=== PATIENT | female | born 2000 | race Caucasian/White ===

== ENCOUNTER 2020-08-24 12:51 | Emergency (ER) | payer BC, SELFPAY ==
[2020-08-24 13:30] VITALS: BP 118/80; PULSE 70; RESP 16; TEMP 36.4; O2SAT 100
--- NOTE | 2020-08-24 14:50 | ED.GENADULT ---
HPI - General Adult General Chief complaint: Unspecified <Red Hudson PA-C - Last Filed: 08/24/20 14:54> Stated complaint: needs return to work slip <Red Hudson PA-C - Last Filed: 08/24/20 14:54> Time Seen by Provider: 08/24/20 14:46 <Red Hudson PA-C - Last Filed: 08/24/20 14:54> Source: patient <Red Hudson PA-C - Last Filed: 08/24/20 14:54> Mode of arrival: ambulatory <Red Hudson PA-C - Last Filed: 08/24/20 14:54> Limitations: no limitations <Red Hudson PA-C - Last Filed: 08/24/20 14:54> History of Present Illness HPI narrative: Patient a 19-year-old female who presents to emergency department for evaluation of emesis yesterday which began early in the day 4 episodes of emesis felt better in the evening notes that her symptoms have resolved has no pain nausea patient notes that she feels fine this morning is tolerating p.o. intake without difficulty Patient requesting a work release <Red Hudson PA-C - Last Filed: 08/24/20 14:54> Related Data Home medications: Home Medications Medication Instructions Recorded Confirmed No Home Medications 08/24/20 08/24/20 <Red Hudson PA-C - Last Filed: 08/24/20 14:54> Allergies/adverse reactions: Allergies Allergy/AdvReac Type Severity Reaction Status Date / Time No Known Allergies Allergy Mild Verified 08/24/20 13:34 <Red Hudson PA-C - Last Filed: 08/24/20 14:54> Review of Systems Review of Systems: All systems reviewed & are unremarkable except as noted in HPI and below <Red Hudson PA-C - Last Filed: 08/24/20 14:54> PMFSH Social History Social History: Social History Gender identity (if verbalized by the patient): Female <Red Hudson PA-C - Last Filed: 08/24/20 14:54> Exam Narrative: Exam Narrative: GENERAL: Well-appearing, well-nourished, and in no acute distress. HEAD: Normocephalic, atraumatic. EYES: PERRLA and EOMI. ENT: Nares clear, no rhinorrhea or epistaxis. Mucous membranes moist. CHEST: Clear to auscultation. No respiratory distress. No wheezes rales or rhonchi HEART: Regular rate and rhythm. No murmur heard. EXTREMITIES: Normal range of motion. No edema. SKIN: Warm, dry, no rash. NEURO: No focal deficits. Alert and oriented x3. Cranial nerves II through XII grossly intact PSYCH: Normal mood and affect. <Red Hudson PA-C - Last Filed: 08/24/20 14:54> Course Course Emergency Course: Patient hemodynamically stable felt appropriate for outpatient reevaluation <Red Hudson PA-C - Last Filed: 08/24/20 14:54> Vital Signs Vital signs: Vital Signs Temperature 97.6 F 08/24/20 13:30 Pulse Rate 70 08/24/20 13:30 Respiratory Rate 16 08/24/20 13:30 Blood Pressure 118/80 08/24/20 13:30 Pulse Oximetry 100 08/24/20 13:30 Temperature 97.6 F 08/24/20 13:30 Pulse Rate 70 08/24/20 13:30 Respiratory Rate 16 08/24/20 13:30 Blood Pressure 118/80 08/24/20 13:30 Pulse Oximetry 100 08/24/20 13:30 <Red Hudson PA-C - Last Filed: 08/24/20 14:54> Vital Signs Temperature 97.6 F 08/24/20 13:30 Pulse Rate 70 08/24/20 13:30 Respiratory Rate 16 08/24/20 13:30 Blood Pressure 118/80 08/24/20 13:30 Pulse Oximetry 100 08/24/20 13:30 Temperature 97.6 F 08/24/20 13:30 Pulse Rate 70 08/24/20 13:30 Respiratory Rate 16 08/24/20 13:30 Blood Pressure 118/80 08/24/20 13:30 Pulse Oximetry 100 08/24/20 13:30 <Cora Baird MD - Last Filed: 08/24/20 18:16> Medical Decision Making MDM Narrative Medical decision making narrative: Patient in no distress no complaints will be discharged home <DEBRA Hunt Last Filed: 08/24/20 14:54> Vital Signs Vital Signs: Vital Signs Temperature 97.6 F 08/24/20 13:30 Pulse Rate 70 08/24/20 13:30 Respiratory
== END 2020-08-24 15:34 | disposition home or self-care (01) ==
LOC: ANHED 15:01
PROVIDERS: Emergency Provider General Practice
DX: R11.10 Vomiting, unspecified (principal)
CPT/HCPCS: 99281

== ENCOUNTER 2020-09-03 20:59 | Emergency (ER) | payer BC, SELFPAY ==
[2020-09-03 21:08] VITALS: BP 140/80; PULSE 87; RESP 18; TEMP 36.6; O2SAT 100
--- NOTE | 2020-09-03 21:10 | ED.OVERDOSE ---
HPI - Overdose General Chief Complaint: Shortness of Breath/Dyspnea Stated Complaint: fenantyl use - anxiety attack after drug usage History of Present Illness HPI Narrative: Healthy 19 yo female presents to the ED for a possible fentanyl overdose. She snorted what she thought was fentanyl this evening. Afterwards she became short of breath and had heart palpitations. Her mother noted that her color didn't look right and called 911. When EMS arrivaed they found her fully alert with normal vitals. She says that she stopped using for awhile, so her tolerance may be down. She also notes that anxiety may have played a role. In addition she says that she was due to start her period today, but it did not come. She would like a test . Related Data Home Medications Medication Instructions Recorded Confirmed No Home Medications 08/24/20 08/24/20 Allergies Allergy/AdvReac Type Severity Reaction Status Date / Time No Known Allergies Allergy Mild Verified 09/03/20 21:14 Review of Systems Review of Systems: All systems reviewed & are unremarkable except as noted in HPI and below Constitutional: Constitutional: Denies chills, Denies fever(s) and Denies weakness ENT: Reports dizziness Cardiovascular: Cardiovascular: Denies chest pain Respiratory: Respiratory: Reports dyspnea Gastrointestinal: Gastrointestinal: Reports no additional gastrointestinal complaints Neurologic: Reports dizziness and Denies headache(s) Psychiatric: Psychiatric: Reports anxiety [facility] Past Medical History Medical History (Updated 09/04/20 @ 00:00 by Dena Daemon) Anxiety Social History Social History (Updated 09/03/20 @ 21:26 by Isaac Bee MD) Substance use: current Substance use type: opiates Gender identity (if verbalized by the patient): Female Exam Const: General: healthy appearing, no acute distress and alert Orientation/consciousness: patient oriented x3 HENMT: Head: normal to inspection Eyes: Pupils: Equal, round and reactive pupils present Resp: Effort & Inspection: normal respiratory effort Auscultation: clear to auscultation bilaterally Cardio: Rate: regular rate Rhythm: regular rhythm Skin: General skin exam: normal color Neuro: General: patient oriented x3, moves all extremities, no focal motor deficits and CN's II-XI intact bilaterally Speech: normal speech Gait exam (Neuro): Normal gait present Extrem: General: normal to inspection Psych: Affect: Sad affect present Course Vital Signs Vital signs: Vital Signs Temperature 36.6 C 09/03/20 21:08 Pulse Rate 87 09/03/20 21:08 Respiratory Rate 18 09/03/20 21:08 Blood Pressure 140/80 09/03/20 21:08 Pulse Oximetry 100 09/03/20 21:08 Temperature 36.6 C 09/03/20 21:08 Pulse Rate 79 09/03/20 22:41 Respiratory Rate 18 09/03/20 22:41 Blood Pressure 132/79 09/03/20 22:41 Pulse Oximetry 99 09/03/20 22:41 MDM - Overdose MDM Narrative Medical decision making narrative: asymptomatic at this time, normal vitals, will observe briefly. Differential Diagnosis Differential diagnosis: Likely drug overdose Medical Records Attestation: I reviewed the patient's medical records. Lab Data Attestation: I reviewed the patient's lab results. Labs: UCG Bedside Result Negative Reference Range: Negative Discharge Plan Discharge Clinical Impression: Opioid abuse Patient Disposition: Home, Self-Care Condition: Stable Instructions: Opioid Use Disorder (ED) Prescriptions: No Action No Home Medications RF: 0 Follow-up/Referrals: Leila Fuentes MD [Physician] - PHYSICIAN,[facility] OR [employer] WORKER [Primary Care Provider] -
[2020-09-03 22:41] VITALS: BP 132/79; PULSE 79; RESP 18; O2SAT 99
== END 2020-09-03 22:43 | disposition home or self-care (01) ==
LOC: ANHED 21:42
PROVIDERS: Emergency Provider Emergency Medicine
DX: F11.10 Opioid abuse, uncomplicated (principal)
CPT/HCPCS: 81025; 99283

== ENCOUNTER 2020-09-25 09:53 | Emergency (ER) | payer BC, SELFPAY ==
[2020-09-25 10:20] VITALS: BP 110/77; PULSE 81; RESP 18; TEMP 36.7; O2SAT 100
--- NOTE | 2020-09-25 11:17 | ED.GENADULT ---
HPI - General Adult General Chief complaint: Unspecified Stated complaint: wants work note Time Seen by Provider: 09/25/20 11:12 Source: patient Mode of arrival: ambulatory Limitations: no limitations History of Present Illness HPI narrative: This is a 19 year old female that presents to the ER for a return to work note. Reports she had a GI bug 2 days ago. Reports she was having abdominal cramping, nausea, vomiting and diarrhea. Reports this resolved within 24 hours. She has been feeling fine since yesterday. Is afebrile and has no current complaints. Would like a note to return to work Related Data Home Medications Medication Instructions Recorded Confirmed No Home Medications 08/24/20 08/24/20 Allergies Allergy/AdvReac Type Severity Reaction Status Date / Time No Known Allergies Allergy Mild Verified 09/03/20 21:14 Review of Systems Review of Systems: Narrative: CONSTITUTIONAL: Denies fever GASTROINTESTINAL: Denies abdominal pain, nausea, vomiting, or diarrhea. All systems reviewed & are unremarkable except as noted in HPI and below PMFSH Past Medical History Medical History (Updated 09/25/20 @ 11:22 by Floresita Palmer PA-C) Anxiety Social History Social History (Updated 09/03/20 @ 21:26 by Isaac Bee MD) Substance use: current Substance use type: opiates Gender identity (if verbalized by the patient): Female Exam Narrative: Exam Narrative: GENERAL: Well-appearing, well-nourished, and in no acute distress. HEAD: Normocephalic, atraumatic. EYES: EOMI. CHEST: Clear to auscultation. No respiratory distress. No wheezes rales or rhonchi HEART: Regular rate and rhythm. No murmur heard. Normal peripheral pulses. ABDOMEN: Soft, nontender, nondistended, normal active bowel sounds. EXTREMITIES: Normal range of motion. No edema. SKIN: Warm, dry, no rash. NEURO: No focal deficits. Alert and oriented x3. PSYCH: Normal mood and affect Course Vital Signs Vital signs: Vital Signs Temperature 98.0 F 09/25/20 10:20 Pulse Rate 81 09/25/20 10:20 Respiratory Rate 18 09/25/20 10:20 Blood Pressure 110/77 09/25/20 10:20 Pulse Oximetry 100 09/25/20 10:20 Temperature 98.0 F 09/25/20 10:20 Pulse Rate 81 09/25/20 10:20 Respiratory Rate 18 09/25/20 10:20 Blood Pressure 110/77 09/25/20 10:20 Pulse Oximetry 100 09/25/20 10:20 Medical Decision Making MDM Narrative Medical decision making narrative: Patient presents to the emergency department for a return to work note. Reports she had a GI bug a couple of days ago with nausea, vomiting and diarrhea. This resolved within 24 hours. Is asymptomatic currently. Afebrile and nontoxic-appearing. Will be given note to return to work. She is to follow-up with primary care doctor Vital Signs Vital Signs: Vital Signs Temperature 98.0 F 09/25/20 10:20 Pulse Rate 81 09/25/20 10:20 Respiratory Rate 18 09/25/20 10:20 Blood Pressure 110/77 09/25/20 10:20 Pulse Oximetry 100 09/25/20 10:20 Temperature 98.0 F 09/25/20 10:20 Pulse Rate 81 09/25/20 10:20 Respiratory Rate 18 09/25/20 10:20 Blood Pressure 110/77 09/25/20 10:20 Pulse Oximetry 100 09/25/20 10:20 Critical Care Time Critical Care Time Critical Care Time: No Discharge Plan Discharge Clinical Impression: Return to work evaluation Patient Disposition: Home, Self-Care Condition: Stable Additional Instructions: You may return to work without restrictions You should establish with a primary care provider. Dr. Glass is weatherization specialist today Prescriptions: No Action No Home Medications RF: 0 Follow-up/Referrals: Michael Glass MD [Physician] - 1 Week PHYSICIAN,BRUSH MATERIAL PREPARER [Primary Care Provider] - Stand Alone Forms: Work/School Release IP
== END 2020-09-25 11:47 | disposition home or self-care (01) ==
PROVIDERS: Emergency Provider Emergency Medicine
DX: Z02.89 Encounter for other administrative examinations (principal)
CPT/HCPCS: 99281

== ENCOUNTER 2020-10-29 14:55 | Emergency (ER) | payer BC, SELFPAY ==
[2020-10-29 14:56] VITALS: BP 118/81; PULSE 84; RESP 16; TEMP 36.4; O2SAT 100
--- NOTE | 2020-10-29 15:02 | ED.FEMALEGU ---
HPI - Female Genitourinary General Chief complaint: Urogenital-Female Stated complaint: urinary symptoms Time Seen by Provider: 10/29/20 15:02 Source: patient Mode of arrival: ambulatory Limitations: no limitations History of Present Illness HPI Narrative: Patient is a 19-year-old female who presents for evaluation of chlamydia. Patient states her partner told her that he had tested positive for chlamydia today. She is only monogamous with one partner. She reports history of previous chlamydia infection that was treated over 2 years ago. Patient denies fever, chills, abdominal pain, pelvic pain, vaginal discharge or vaginal bleeding. She does not believe she is . She states that she would like evaluation for sexual transmitted infection as well as empiric treatment. Related Data Allergies Allergy/AdvReac Type Severity Reaction Status Date / Time No Known Allergies Allergy Mild Verified 10/29/20 15:21 Review of Systems Review of Systems: Narrative: CONSTITUTIONAL: Denies fever CARDIOVASCULAR: Denies chest pain RESPIRATORY: Denies cough or dyspnea. GASTROINTESTINAL: Denies abdominal pain SKIN: Denies rash MUSCULOSKELETAL: Denies back pain NEUROLOGIC: Denies headache [facility] Past Medical History Medical History (Updated 10/29/20 @ 16:21 by Lissette Whitlock MD) Anxiety Social History Social History Substance use: current Substance use type: opiates Gender identity (if verbalized by the patient): Female Exam Narrative: Exam Narrative: GENERAL: Awake, alert, conversant HEAD: Normocephalic, atraumatic. EYES: PERRLA and EOMI. ENT: Nares clear, no rhinorrhea or epistaxis. Mucous membranes moist. NECK: Supple. CHEST: No respiratory distress, breathing even and non labored HEART: Regular rate, sinus rhythm ABDOMEN:Non distended, non tender : Labia majora and minora normal without lesions. Vagina without blood. No cervical motion tenderness. No adnexal tenderness or fullness bilaterally. No discharge present. EXTREMITIES: Normal range of motion. No edema. SKIN: Warm, dry, no rash. NEURO:No focal deficits. Alert and oriented x3 Course Vital Signs Vital signs: Vital Signs Temperature 36.4 C 10/29/20 14:56 Pulse Rate 84 10/29/20 14:56 Respiratory Rate 16 10/29/20 14:56 Blood Pressure 118/81 10/29/20 14:56 Pulse Oximetry 100 10/29/20 14:56 Temperature 36.4 C 10/29/20 14:56 Pulse Rate 84 10/29/20 14:56 Respiratory Rate 16 10/29/20 14:56 Blood Pressure 118/81 10/29/20 14:56 Pulse Oximetry 100 10/29/20 14:56 MDM - Female Genitourinary MDM Narrative Medical decision making narrative: Pt presenting for evaluation of chlamydia exposure. Pt will be empirically treated per new guidelines. Given 500 mg Rocephin. Pt without UTI. Pt without abdominal pain. Pelvic exam is normal without signs of PID or TOA. Pt then discharged home. Lab Data Labs: Lab Results 10/29/20 10/29/20 10/29/20 Range/Units 15:13 15:24 15:24 Urine Color Harini (Yellow) Urine Appearance Clear (Clear) Urine pH 5.0 (5.0-9.0) Ur Specific [place] 1.034 (1.001-1.035) Urine Protein 2+ H (Negative) mg/dL Urine Glucose (UA) Negative (Negative) mg/dL Urine Ketones Negative (Negative) mg/dL Ur Blood (Man) Negative (Negative) Urine Nitrate Negative (Negative) Urine Bilirubin Negative (Negative) Urine Urobilinogen 2.0 H (<2.0) mg/dL Leukocyte Esterase Rfl Negative (Negative) MATILDE/UL Urine RBC 0-2 (0-2) /hpf Urine WBC 0-3 /hpf Ur Squamous Epith Cells Occasional (Few) /hpf Calcium Oxalate Crystal Present (None) /hpf Hyaline Casts 3-4 H (None) /lpf Urine Mucus Heavy H /lpf Chlamydia Culture Pending C.trachomatis RNA (TMA) Pending N.gonorrhoeae RNA (TMA) Pending Trichomonas Direct ID Negative (Negative) UCG Bedside Result
[2020-10-29 15:30] LABS: Add Urine Microscopic? YES; Appearance Urine Clear (Clear); Bilirubin Urine Negative (Negative); Blood Urine Negative (Negative); Calcium Oxalate Crystals Urine Present /hpf; Color Urine Amber (Yellow); Glucose Urine UA Negative (Negative); Ketones Urine Negative (Negative); Leukocyte Esterase Ur Negative LEU/UL (Negative); Mucus Urine Heavy /lpf; Nitrate Urine Negative (Negative); Protein Urine 2+ mg/dL (Negative); RBC Urine 0-2 /hpf (0-2); Squamous Epithelial Cell Urine Occasional /hpf (Few); WBC Urine 0-3 /hpf
[2020-10-29 15:32] LABS: Specific Grav Ur 1.034 (1.001-1.035)
[2020-10-29] MEDS: cefTRIAXone 1 GM VIAL 0.5 GM IM (16:03)
[2020-10-29 17:01] VITALS: BP 122/83; PULSE 88; RESP 18; O2SAT 99
== END 2020-10-29 17:02 | disposition home or self-care (01) ==
PROVIDERS: Emergency Provider Emergency Medicine
DX: Z20.2 Contact with and (suspected) exposure to infections with a predominantly sexual mode of transmission (principal)
CPT/HCPCS: 81001; 81025; 87070; 87077; 87110; 87140; 87491; 87591; 87808; 96372; 99284; J0696

== ENCOUNTER 2021-02-08 20:08 | Emergency (ER) | payer BC, SELFPAY ==
[2021-02-08 20:27] VITALS: BP 137/84; PULSE 80; RESP 14; TEMP 37; O2SAT 99
[2021-02-08 21:23] VITALS: BP 123/73; PULSE 72; RESP 16; TEMP 36.9; O2SAT 98
[2021-02-08] MEDS: CEPHALEXIN 500 MG CAPSULE PO (21:55)
--- NOTE | 2021-02-08 22:30 | ED.SKABFB ---
HPI - Skin/Abscess/Foreign Bdy General Chief complaint: Skin/Abscess/Foreign Body Stated complaint: cyst on back Time Seen by Provider: 02/08/21 21:30 Source: RN notes reviewed History of Present Illness HPI narrative: Patient presents emergency room from home for an abscess. Patient states cyst has been present for approximately 5 years but is gotten bigger and more tender with erythema over the past 2 weeks. Patient states has been no drainage from the wound she denies any fevers or chills or any other symptoms Related Data Allergies Allergy/AdvReac Type Severity Reaction Status Date / Time No Known Allergies Allergy Mild Verified 02/08/21 21:28 Review of Systems Review of Systems: Gen.: Denies fevers or chills Respiratory: Denies shortness of breath Neuro: Denies numbness, tingling, weakness Skin: See HPI Endo: Denies DM PMFSH Past Medical History Medical History Anxiety Social History Social History Substance use: current Substance use type: opiates Gender identity (if verbalized by the patient): Female Exam Narrative: APPEARANCE: No acute distress, nontoxic, resting in bed Eyes: EOMI HEENT: Normocephalic, atraumatic, RESPIRATORY: No respiratory distress MUSCULOSKELETAl: Moves all extremities NEURO: Awake and alert. Following commands, speech normal, no focal deficits SKIN:: Warm, dry. Right upper back has a 2 cm fluctuant abscess with overlying erythema no active drainage Course Course Emergency Course: Discussed with patient results of workup and diagnosis. Discussed need for follow-up with primary care, proper use of medication, and reasons to return to the emergency department. Patient understands and agrees to current treatment plan Vital Signs Vital signs: Vital Signs Temperature 98.6 F 02/08/21 20: Pulse Rate 80 02/08/21 20:27 Respiratory Rate 14 02/08/21 20: Blood Pressure 137/84 02/08/21 20:27 Pulse Oximetry 99 02/08/21 20: Temperature 98.4 F 02/08/21 21:23 Pulse Rate 72 02/08/21 21:23 Respiratory Rate 16 02/08/21 21:23 Blood Pressure 123/73 02/08/21 21:23 Pulse Oximetry 98 02/08/21 21:23 Procedures Abscess I/D back: Abcess I&D Additional Comments: Verbal consent was obtained prior to procedure. The abscess was cleaned with Betadine and lidocaine 1% with epi was used for anesthesia. The abscess was incised with an 11 blade. There was return of approximately 6-7 mL of thick purulent drainage. Curved hemostats were used to break up loculations, the wound was irrigated with normal saline. Following a sterile dressing was applied. Patient tolerated the procedure well Discharge Plan Discharge Clinical Impression: Abscess of back Patient Disposition: Home, Self-Care Condition: Stable Instructions: Antibiotic Form, Abscess Incision and Drainage (DC) Additional Instructions: Return for increased bleeding from the wound fever or any other symptoms of concern Prescriptions: New cephalexin 500 mg capsule 500 mg PO Q8H 10 Days Qty: 30 RF: 0 ibuprofen [IBU] 600 mg tablet 600 mg PO Q6H PRN (Reason: pain) Qty: 20 RF: 0 Follow-up/Referrals: PHYSICIAN,ENDOSCOPIC TECHNICIAN [Primary Care Provider] - Griffin Bishop MD [Physician] - (Follow-up in 1-2 days for further on-call physician treatment and evaluation) Time of Disposition: 22:32
[2021-02-08 22:42] VITALS: BP 115/70; PULSE 68; RESP 14; TEMP 36.8; O2SAT 97
== END 2021-02-08 22:55 | disposition home or self-care (01) ==
PROVIDERS: Emergency Provider Emergency Medicine
DX: L02.212 Cutaneous abscess of back [any part, except buttock and flank] (principal); F41.9 Anxiety disorder, unspecified
CPT/HCPCS: 10060; 99283; A9270

== ENCOUNTER 2021-06-17 12:51 | Emergency (ER) | payer BC, SELFPAY ==
[2021-06-17 13:22] VITALS: BP 115/74; PULSE 77; RESP 17; TEMP 36.8; O2SAT 99
[2021-06-17 13:29] LABS: Add Urine Microscopic? YES; Appearance Urine Clear (Clear); Bilirubin Urine Negative (Negative); Color Urine Yellow (Yellow); Glucose Urine UA Negative (Negative); Ketones Urine Negative (Negative); Leukocyte Esterase Ur 3+ LEU/UL (Negative); Mucus Urine Rare /lpf; Nitrate Urine Negative (Negative); Protein Urine Negative (Negative); RBC Urine 21-50 /hpf (0-2); Specific Grav Ur 1.025 (1.001-1.035); Squamous Epithelial Cell Urine Few /hpf (Few); Urobilinogen Urine Negative mg/dL (<2.0)
[2021-06-17 13:48] LABS: Blood Urine Negative (Negative)
[2021-06-17 14:51] VITALS: BP 125/76; PULSE 85; RESP 16; O2SAT 98
--- NOTE | 2021-06-17 15:14 | ED.GENADULT ---
HPI - General Adult General Chief complaint: Urogenital-Female Stated complaint: uti/yeast infection Time Seen by Provider: 06/17/21 14:08 Source: patient Mode of arrival: ambulatory Limitations: no limitations History of Present Illness HPI narrative: Patient is a 20-year-old female with chief complaint of burning with urination, vaginal irritation and white discharge over the past 5 to 6 days. Patient reports a history of yeast infections and reports that her symptoms are the same. Patient denies difficulty urinating. Patient reports that she tried an [id number] yeast cream which improved her symptoms for a day or so but then they returned. Patient denies vaginal discharge or pain. Patient denies concern for STDs. Patient denies fever, chills, nausea, vomiting, flank pain, or abdominal pain. Related Data Allergies Allergy/AdvReac Type Severity Reaction Status Date / Time No Known Allergies Allergy Mild Verified 06/17/21 12:52 Review of Systems Review of Systems: CONSTITUTIONAL: Denies fever, chills, or sweats. EYES: Denies visual changes, redness, or discharge. ENT: Denies rhinorrhea, congestion, sore throat, or otalgia. CARDIOVASCULAR: Denies chest pain, palpitations, or edema. RESPIRATORY: Denies cough or dyspnea. GASTROINTESTINAL: Denies abdominal pain, nausea, vomiting, or diarrhea. GENITOURINARY: Reports dysuria denies hematuria. SKIN: Reports irritation and itching. MUSCULOSKELETAL: Denies back pain, joint pain, or myalgia. NEUROLOGIC: Denies headache, numbness, dizziness, or weakness. PSYCHIATRIC: Denies anxiety or depression. PMFSH Past Medical History Medical History Anxiety Social History Social History Substance use: current Substance use type: opiates Gender identity (if verbalized by the patient): Female Exam Narrative: GENERAL: Well-appearing, well-nourished, and in no acute distress. HEAD: Normocephalic, atraumatic. EYES: PERRLA and EOMI. CHEST: Clear to auscultation. No respiratory distress. No wheezes rales or rhonchi HEART: Regular rate and rhythm. No murmur heard. Normal peripheral pulses. ABDOMEN: Soft, nontender, nondistended, normal active bowel sounds. No CVA tenderness. PELVIC: Declined. EXTREMITIES: Normal range of motion. No edema. SKIN: Warm, dry, no rash. NEURO: No focal deficits. Alert and oriented x3. PSYCH: Normal mood and affect. Course Vital Signs Vital signs: Vital Signs Temperature 98.2 F 06/17/21 13:22 Pulse Rate 77 06/17/21 13:22 Respiratory Rate 17 06/17/21 13:22 Blood Pressure 115/74 06/17/21 13:22 Pulse Oximetry 99 06/17/21 13:22 Temperature 98.2 F 06/17/21 13:22 Pulse Rate 85 06/17/21 14:51 Respiratory Rate 16 06/17/21 14:51 Blood Pressure 125/76 06/17/21 14:51 Pulse Oximetry 98 06/17/21 14:51 Medical Decision Making MDM Narrative Medical decision making narrative: Patient declines treatment or testing for gonorrhea or chlamydia. Patient reports that her symptoms are the same as previous yeast infections. Patient will be treated for yeast infection and urinary tract infection. Patient has been instructed to follow-up with FACILITIES CLERK, health department or primary care for further investigation into her symptoms they persist and/or full STD panel testing. Patient has been instructed to return to emergency department should she develop any emergent symptoms. Vital Signs Vital Signs: Vital Signs Temperature 98.2 F 06/17/21 13:22 Pulse Rate 77 06/17/21 13:22 Respiratory Rate 17 06/17/21 13:22 Blood Pressure 115/74 06/17/21 13:22 Pulse Oximetry 99 06/17/21 13:22 Temperature 98.2 F 06/17/21 13:22 Pulse Rate 85 06/17/21 14:51 Respiratory Rate 16 06/17/21 14:51 Blood Pressure 125/76 06/17/21 14:51 Pulse Oximetry 98 06/17/21 14:51 Lab Data Labs: Lab Results
== END 2021-06-17 14:51 | disposition home or self-care (01) ==
LOC: ANHED 14:35
PROVIDERS: Emergency Provider Emergency Medicine
DX: N30.01 Acute cystitis with hematuria (principal); B37.3 Candidiasis of vulva and vagina
CPT/HCPCS: 81001; 81025; 87086; 99283